=== PATIENT | male | born 1965 | race Caucasian/White ===

== ENCOUNTER 2021-07-12 07:59 | Outpatient (REF) | payer OTHER, SELFPAY ==
[2021-07-12 08:38] LABS: Hematocrit 47.7 % (42.0-52.0); Mean Corpuscular HGB Conc 33.5 g/dl (31.0-36.0); Mean Corpuscular Volume 83.4 fL (80.0-98.0); Mean Platelet Volume 9.5 fL (9.4-12.4); Platelet Count 262 X10*3/uL (160-400); Red Blood Count 5.72 X10*6/uL (4.60-5.80); Red Cell Distribution Width 13.2 % (11.0-16.0); White Blood Count 7.3 X10*3/uL (4.8-10.8)
[2021-07-12 09:02] LABS: Estimated Average Glucose 303 mg/dL; Hemoglobin A1c % 12.2 %
[2021-07-12 09:03] LABS: Alanine Aminotransferase 14 U/L (0-40); Albumin Level 4.4 g/dL (3.5-5.0); Alkaline Phosphatase 95 U/L (39-117); Anion Gap 14 (12-20); Aspartate Amino Transferase 12 U/L (5-37); Bilirubin Total 0.7 mg/dL (0.0-1.0); Blood Urea Nitrogen 14 mg/dL (9-16); Calcium 9.8 mg/dL (8.4-10.2); Carbon Dioxide 25 mmol/L (22-29); Chloride 105 mmol/L (96-108); Cholesterol 270 mg/dL; Estimated Glomerular Filt Rate > 60; Glucose Fasting 309 mg/dL (60-99); HDL Cholesterol 58 mg/dL; LDL Cholesterol Calculated 165 mg/dl; Potassium 4.5 mmol/L (3.3-5.1); Sodium 139 mmol/L (135-145); Total Protein 7.6 g/dL (6.5-8.0); Triglycerides 239 mg/dL
[2021-07-12 09:26] LABS: Prostate Specific Antigen Scr 0.42 ng/mL (<0.05-4.0); Vitamin D 25-OH Total 11.1 ng/mL (>30)
[2021-07-12 09:43] LABS: Reflex LDLD? No
[2021-07-12 10:24] LABS: Creatinine Urine 39.53 mg/dL; Microalbum/Creatinine Ratio Ur 106.2 ug/mg cr
[2021-07-19 15:51] LABS: Testosterone, Free 38.9 pg/mL (35.0-155.0); Testosterone, Total 233 ng/dL (250-1100)
== END 2021-07-12 08:00 | disposition home or self-care (01) ==
LOC: HO.LAB 07:59
PROVIDERS: Absent Provider Internal Medicine; PCP Internal Medicine; Visit Provider Internal Medicine
DX: Z12.5 Encounter for screening for malignant neoplasm of prostate (principal); E29.1 Testicular hypofunction; E11.9 Type 2 diabetes mellitus without complications; E55.9 Vitamin D deficiency, unspecified; E03.0 Congenital hypothyroidism with diffuse goiter
CPT/HCPCS: 36415; 80053; 80061; 82043; 82306; 83036; 84153; 84402; 84403; 85027

== ENCOUNTER 2021-10-21 08:53 | Outpatient (REF) | payer OTHER, SELFPAY ==
[2021-10-21 10:47] LABS: Estimated Average Glucose 192 mg/dL; Hemoglobin A1c % 8.3 %
[2021-10-21 11:10] LABS: Alanine Aminotransferase 14 U/L (0-40); Albumin Level 4.4 g/dL (3.5-5.0); Alkaline Phosphatase 82 U/L (39-117); Anion Gap 16 (12-20); Aspartate Amino Transferase 12 U/L (5-37); Bilirubin Total 0.6 mg/dL (0.0-1.0); Blood Urea Nitrogen 17 mg/dL (9-16); Calcium 9.4 mg/dL (8.4-10.2); Carbon Dioxide 25 mmol/L (22-29); Chloride 104 mmol/L (96-108); Cholesterol 201 mg/dL; Estimated Glomerular Filt Rate > 60; Glucose Random 216 mg/dL (60-115); HDL Cholesterol 64 mg/dL; LDL Cholesterol Calculated 98 mg/dl; Potassium 4.9 mmol/L (3.3-5.1); Sodium 140 mmol/L (135-145); Total Protein 7.4 g/dL (6.5-8.0); Triglycerides 196 mg/dL
== END 2021-10-21 08:54 | disposition home or self-care (01) ==
LOC: HO.LAB 08:53
PROVIDERS: PCP Internal Medicine; Visit Provider Internal Medicine
DX: E78.00 Pure hypercholesterolemia, unspecified (principal)
CPT/HCPCS: 36415; 80053; 80061; 83036

== ENCOUNTER 2022-05-22 11:48 | Outpatient (REF) | payer OTHER, SELFPAY | END 2022-05-22 11:49 | disposition home or self-care (01) | LOC: HO.LNP 11:48 | PROVIDERS: Visit Provider Physician Assistant | DX: R30.0 Dysuria (principal) | CPT/HCPCS: 87086 ==

== ENCOUNTER 2022-05-28 11:25 | Outpatient (REF) | payer OTHER, SELFPAY ==
[2022-05-28 13:59] LABS: Appearance Urine Turbid; Color Urine Yellow; Glucose Urine UA 500 mg/dL (Negative); Leukocyte Esterase Urine Moderate (2+) (Negative); Nitrite Urine Negative (Negative); UMIC TRIGGER UA YES; Urine Blood Large (3+) (Negative); Urine Ketones Negative (Negative); Urine Protein 300 (3+) mg/dL (Neg-Trace)
[2022-05-28 14:17] LABS: Bacteria Urine 4+ (None Seen)
[2022-05-28 14:18] LABS: WBC Urine >50 /HPF (0-5)
[2022-05-28 14:19] LABS: Hyaline Casts Urine 0-2 /LPF (0-2); WBC Clumps Urine Present
[2022-05-28 14:20] LABS: RBC Urine 0-2 /HPF (0-2)
== END 2022-05-28 11:26 | disposition home or self-care (01) ==
LOC: HO.HMGCLDS 11:25
PROVIDERS: PCP Urology; Visit Provider Internal Medicine
DX: N39.0 Urinary tract infection, site not specified (principal)
CPT/HCPCS: 81001; 87086